=== PATIENT | female | born 1930 | race Caucasian/White ===

== ENCOUNTER 2018-12-06 18:41 | Observation (INO) | payer OTHER ==
[~2018-12-06] VITALS: Ht 162.6 cm; Wt 84.6 kg
[2018-12-06] MEDS ORDERED: ALBUTEROL 0.083% (NEB) 2.5 MG/3 ML AMP HHN STA (23:19)
[2018-12-06] MEDS ORDERED: SOD CHLORIDE 0.9% 500 ML IV STA (23:19)
[2018-12-06] MEDS ORDERED: IPRATROPIUM (NEB) 0.5 MG/2.5 ML AMP INH ONE (23:30)
[2018-12-07] VITALS (7 sets, daily range): BP systolic 129–140; BP diastolic 64–84; PULSE 72–83; RESP 18; Ht 162.6 cm; Wt 84.6 kg
[2018-12-07] MEDS ORDERED: ASPI-535 PO (01:24)
[2018-12-07] MEDS ORDERED: LEVO100T8 PO (01:24)
[2018-12-07] MEDS ORDERED: POTA20TA15 PO (01:24)
[2018-12-07] MEDS ORDERED: FURO40TA4 PO (01:24)
[2018-12-07] MEDS ORDERED: CYAN100T PO (01:24)
[2018-12-07] MEDS ORDERED: POTA10TA37 PO (01:24)
[2018-12-07] MEDS ORDERED: CALC-134 PO (01:24)
[2018-12-07] MEDS ORDERED: MEVA40 PO (01:24)
[2018-12-07] MEDS ORDERED: ASCO500C7 PO (01:31)
[2018-12-07] MEDS ORDERED: VITA200C45 PO (01:31)
[2018-12-07] MEDS ORDERED: OMEG-135 PO (01:31)
[2018-12-07] MEDS ORDERED: MECLIZINE 12.5 MG TAB PO ONE (02:00)
--- NOTE | 2018-12-07 03:22 | ERD ---
ER Documentation Chief Complaint Chief Complaint cough x2 days, also c/o dizziness/nausea HPI This is an 88-year-old female comes in with complaints of difficulty ambulating and feeling off balance. She says she feels "dizzy" but states that the room was not spinning. She has had cough for 2 days. No nausea vomiting no chills. Cough is mildly productive. Her main complaint seems to be the dizziness. She denies any focal neurologic complaints or facial droop. This dizziness has been going on for about 48 hours. Has not taken any medication for it. Denies any other current issues. ROS All systems reviewed and are negative except as per history of present illness. Medications Home Meds Reported Medications Unity-3 Fatty Acids/Fish Oil (Fish Oil 1,000 mg Capsule) 1 Each Capsule, 1 EACH PO, CAP 12/07/18 Vitamin E* (Vitamin E*) 200 Unit Capsule, 200 UNIT PO DAILY, CAP 12/07/18 Ascorbic Acid* (Vitamin C*) 500 Mg Capsule.sa, 500 MG PO DAILY, CAP 12/07/18 Calcium Carbonate/Vitamin D3 (Calcium + Vitamin D Tablet) 1 Each Tablet, 1 EACH PO, TAB 12/07/18 Cyanocobalamin* (Vitamin B12*) 100 Mcg Tab, 100 MCG PO DAILY, TAB 12/07/18 Furosemide* (Furosemide*) 40 Mg Tablet, 40 MG PO QPM, TAB 12/07/18 Lovastatin (Lovastatin) 40 Mg Tablet, 40 MG PO HS, TAB 12/07/18 Potassium Chloride* (K-Dur*) 20 Meq Tab.prt.sr, 20 MEQ PO QPM, TAB.SA 12/07/18 Potassium Chloride* (K-Dur*) 10 Meq Tab.prt.sr, 10 MEQ PO QAM, TAB 12/07/18 Aspirin Ec (Aspir 81) 81 Mg Tablet.dr, 81 MG PO DAILY, #30 TAB 12/07/18 Levothyroxine Sodium* (Levothyroxine Sodium*) 100 Mcg Tablet, 100 MCG PO BEFORE BREAKFAST, #30 TAB 12/07/18 Allergies Allergies: Coded Allergies: No Known Drug Allergies (Verified Allergy, Unknown, 12/06/18) PMhx/Soc History of Surgery: Yes (Bilat feet, R knee, L knee, bilat mastectomy, hys terectomy) Anesthesia Reaction: No Hx Neurological Disorder: No Hx Respiratory Disorders: No Hx Cardiac Disorders: No Hx Psychiatric Problems: No Hx Miscellaneous Medical Probl: Yes (Hypothyroid, ) Hx Alcohol Use: Yes (Rarely) Hx Substance Use: No Hx Tobacco Use: No Smoking Status: Never smoker Physical Exam Vitals Vital Signs Date Temp Pulse Resp B/P (MAP) Pulse Ox O2 O2 Flow FiO2 Time Delivery Rate 12/07/18 98.0 86 16 128/58 96 Room Air 00:40 (81) 12/06/18 70 20 92 21 23:26 12/06/18 98.0 76 16 156/65 95 18:54 (95) Physical Exam Const: No acute distress Head: Atraumatic Eyes: Normal Conjunctiva ENT: Normal External Ears, Nose and Mouth. Neck: Full range of motion. No meningismus. Resp: Clear to auscultation bilaterally Cardio: Regular rate and rhythm, no murmurs Abd: Soft, non tender, non distended. Normal bowel sounds Skin: No petechiae or rashes Back: No midline or flank tenderness Ext: No cyanosis, or edema Neur: Awake and alert Psych: Normal Mood and Affect Result Diagram: 12/06/189 12/06/18 2349 Results 24 hrs Laboratory Tests Test 12/06/18 23:49 White Blood Count 8.7 10^3/ul Red Blood Count 4.56 10^6/ul Hemoglobin 14.0 g/dl Hematocrit 43.4 % Mean Corpuscular Volume 95.2 fl Mean Corpuscular Hemoglobin 30.7 pg Mean Corpuscular Hemoglobin Concent 32.3 g/dl Red Cell Distribution Width 13.4 % Platelet Count 344 10^3/UL Mean Platelet Volume 8.4 fl Immature Granulocytes % 0.300 % Neutrophils % 67.9 % Lymphocytes % 21.8 % Monocytes % 7.9 % Eosinophils % 1.6 % Basophils % 0.5 % Nucleated Red Blood Cells % 0.0 /100WBC Immature Granulocytes # 0.030 10^3/ul Neutrophils # 5.9 10^3/ul Lymphocytes # 1.9 10^3/ul Monocytes # 0.7 10^3/ul Eosinophils # 0.1 10^3/ul Basophils # 0.0 10^3/ul Nucleated Red Blood Cells # 0.0 10^3/ul Sodium Level 141 mmol/L Potassium Level 4.2 mmol/L Chloride Level 98 mmol/L Carbon Dioxide Level 30 mmol/L Anion Gap 13 Blood Urea Nitrogen 15 mg/dl Creatinine 0.77 mg/dl Est Glomerular Filtrat Rate mL/min mL/min Glucose Level 140 mg/dl Lactic Acid Level 1.2 mmol/L Calcium Level 10.1 mg/dl Total Bilirubin 0.3 mg/dl Direct Bilirubin 0.00 mg/dl Indirect Bilirubin 0.3 mg/dl Aspartate Amino Transf (AST/SGOT) 21 IU/L Alanine Aminotransferase (ALT/SGPT) 21 IU/L Alkaline Phosphatase 75 IU/L Troponin I < 0.012 ng/ml B-Type Natriuretic Peptide 152 PG/ML Total Protein 7.7 g/dl Albumin 4.3 g/dl Globulin 3.40 g/dl Albumin/Globulin Ratio 1.26 Current Medications Medications Dose Sig/Justyna Start Time Status Last (Trade) Ordered Route PRN Stop Time Admin Dose Reason Admin Sodium 500 ml @ Q1H STAT 12/06/18 DC 12/06/18 Chloride 500 mls/hr IV 23:19 23:19 12/07/18 00:18 Albuterol 5 mg ONCE STAT 12/06/18 DC 12/06/18 (Proventil HHN 23:19 23:25 0.083% (Neb)) 12/06/18 23:20 Ipratropium 0.5 mg ONCE ONCE 12/06/18 DC 12/06/18 [place] INH 23:30 23:25 (Atrovent 12/06/18 23:31 0.02% (Neb)) Meclizine 50 mg ONCE ONCE 12/07/18 DC 12/07/18 HCl PO 02:00 02:07 (Antivert) 12/07/18 02:01 Procedures/MDM EKG: Rate/Rhythm: [Normal Sinus Rhythm] QRS, ST, T-waves: [No changes consistent w/ acute ischemia] Impression: [No evidence of ischemia or arrhythmia] Chest X-ray 1V Interpreted by me: Soft Tissue: No acute abnormalities Bones: No acute abnormalities Mediastinum/Cardiac Silhouette/Lungs: [No acute abnormalities] Medical decision making: This is an 88-year-old female who has mild ataxia. Her CT scan had a neurological workup thus far negative, however given her advanced age and lack of a clear reason for why she is ataxic, I feel the patient is to be admitted for further evaluation and management. Dr. Cooper is on-call for the patient's IPA and is currently accepted the patient to his service and will continue management from here on Departure Diagnosis: Primary Impression: Ataxia Condition: Fair JOSE VALENTE Dec 07, 2018 03:22
[2018-12-07] MEDS ORDERED: ACETAMINOPHEN 325 MG TAB PO PRN (06:00)
[2018-12-07] MEDS ORDERED: ONDANSETRON 4 MG TAB PO PRN (06:00)
[2018-12-07] MEDS: MECLIZINE 12.5 MG TAB PO PRN ×2 (06:50→17:45)
[2018-12-07] MEDS ORDERED: LEVOTHYROXINE 100 MCG TAB PO SCH (07:00)
[2018-12-07] MEDS ORDERED: MECL12.574 PO (08:57)
--- NOTE | 2018-12-07 08:58 | PDOCDIS ---
Discharge Instructions CONDITION [id number] Patient Condition: [id number] Good HOME CARE INSTRUCTIONS: [id number] Diet Instructions: [id number] FOLLOW UP/APPOINTMENTS Follow-up Plan pcp 1 week NENA MEADOWS MD Dec 07, 2018 08:58
[2018-12-07] MEDS ORDERED: ASPIRIN (EC) 81 MG TAB PO SCH (09:00)
[2018-12-07] MEDS ORDERED: POTASSIUM CHLORIDE (SR) 10 MEQ TAB PO SCH (09:00)
--- NOTE | 2018-12-07 09:16 | HP ---
DATE OF ADMISSION: 12/07/2018 CHIEF COMPLAINT: Dizziness. HISTORY OF PRESENT ILLNESS: This is an 88-year-old very pleasant female who presented to the emergen cy room with complaint of dizziness and vertigo x2 days. The patient denies any focal weakness or nu mbness. No speech deficits. No visual impairment. She had a very bad case of benign positional fernando tigo about 2-1/2 years prior to admission, which required hospitalization for 3 days. There is no hi story of hypertension. The patient reports feeling better since admission. CAT scan of the brain wa s unremarkable. PAST MEDICAL HISTORY: 1. Hypothyroidism. 2. Hyperlipidemia. MEDICATIONS PRIOR TO ADMISSION: 1. Lasix. 2. Potassium supplement. 3. Lipitor. 4. Aspirin. 5. Levothyroxine. SOCIAL HISTORY: The patient lives at home. She denies tobacco or alcohol use. PHYSICAL EXAMINATION: GENERAL: Well-developed, well-nourished elderly female who is in no apparent distress. VITAL SIGNS: Stable. She is afebrile. HEENT: Extraocular muscles intact. Pupils are equal and reactive to light bilaterally. Sclerae are anicteric. Oropharynx is clear and moist. NECK: Supple, no JVD, no carotid bruits. LUNGS: Clear to auscultation bilaterally. CARDIAC: Regular rate and rhythm. No murmurs, rubs or gallops. ABDOMEN: Soft, nontender, nondistended, normoactive bowel sounds. EXTREMITIES: No clubbing, cyanosis, or edema. NEUROLOGICAL: Mild horizontal nystagmus. Cranial nerves II through XII are intact. Strength and se nsation are symmetric and normal in all extremities. Coordination is intact. LABORATORY DATA: Within normal limits. ASSESSMENT: An 88-year-old female with; 1. Recurrent benign positional vertigo. 2. Hypertension, well controlled. 3. Hyperlipidemia. 4. Hypothyroidism. 5. Previous history of benign positional vertigo. PLAN: 1. Place in telemetry observation and meclizine as needed, resume home medications, proceed with bra in MRI. 2. Discharge planning. Dictated By: NENA MEADOWS MD SK/SHENA Conf#: [id number] DID#: [id number] CC: NENA MEADOWS MD;*EndCC*
--- NOTE | 2018-12-07 09:47 | PDOCDIS ---
Discharge Instructions DIAGNOSIS Discharge Diagnosis 88-year-old female with benign positional vertigo Hypertension Hypothyroidism 88-year-old female with history of benign positional vertigo 2-1/2 years prior t o admission, presented to ER with complaint of dizziness and vertigo. There were no other neurological findings. CAT scan of the brain was unremarkable. Patient is in a stable condition for discharge following brain MRI. I recommended SNF. But she refused. Patient has a walker at home. She was evaluated by physical therapy. I prescribed meclizine as needed CONDITION [id number] Patient Condition: [id number] Good HOME CARE INSTRUCTIONS: [id number] Diet Instructions: [id number] FOLLOW UP/APPOINTMENTS Follow-up Plan pcp 1 week NENA MEADOWS MD Dec 07, 2018 09:47
[2018-12-07] MEDS ORDERED: LORAZEPAM 2 MG INJ IV ONE (16:00)
[2018-12-07] MEDS ORDERED: FUROSEMIDE 40 MG TAB PO SCH (21:00)
[2018-12-07] MEDS ORDERED: POTASSIUM CHLORIDE (SR) 20 MEQ TAB PO SCH (21:00)
[2018-12-07] MEDS ORDERED: ATORVASTATIN 20 MG TAB PO SCH (21:00)
== END 2018-12-07 19:30 | disposition home or self-care (01) ==
LOC: E/R 18:41 → 6WM 12-07 02:55
PROVIDERS: ADMIT Internal Medicine; ATTEND Internal Medicine
DX: H81.10 Benign paroxysmal vertigo, unspecified ear (principal); E03.9 Hypothyroidism, unspecified; E78.5 Hyperlipidemia, unspecified; Z79.82 Long term (current) use of aspirin; I10 Essential (primary) hypertension
CPT/HCPCS: 36415; 70450; 71045; 80053; 83605; 83880; 84484; 85025; 87040; 87400; 94664; 96360; 96361; 97162; 99285; G0378; J7040